=== PATIENT | male | born 1955 | race Caucasian/White ===

== ENCOUNTER 2018-05-29 14:48 | Observation (INO) | payer MEDICARE ==
[~2018-05-29] VITALS: Ht 182.9 cm; Wt 113.2 kg
[2018-05-29] MEDS ORDERED: PRAZOSIN HCL2 MG PO (15:14)
[2018-05-29] MEDS ORDERED: CARVEDILOL25 MG PO (15:14)
[2018-05-29] MEDS ORDERED: TRAZODONE HCL100 MG PO (15:15)
[2018-05-29] MEDS ORDERED: WELLBUTRIN SR150 MG PO (15:16)
[2018-05-29] MEDS ORDERED: AMLODIPINE BESY10 MG PO (15:16)
[2018-05-29] MEDS ORDERED: LISINOPRIL40 MG PO (15:17)
[2018-05-29] MEDS ORDERED: LYRICA300 MG PO (15:17)
[2018-05-29] MEDS ORDERED: NORCO 5-325 TA1 EACH PO (15:18)
[2018-05-29] MEDS ORDERED: LORAZEPAM1 MG PO (15:19)
--- NOTE | 2018-06-03 11:29 | EKG ---
[facility] [address] [facility] [place], [place] [address] Signed Normal sinus rhythm Left axis deviation Possible Anterior infarct , age undetermined Abnormal ECG No previous ECGs available Confirmed by JARETT LEOS DO ([id number]) on 06/03/2018 11:28:50 AM Electronically Signed By: JARETT LEOS DO 06/03/18 1129 PATIENT NAME: NORMAN HUERTAS Electrocardiogram DATE OF : 55 PHYSICIAN: JARETT LEOS DO REPORT #: [id number] REPORT IS CONFIDENTIAL AND NOT TO BE RELEASED WITHOUT AUTHORIZATION
== END 2018-05-30 14:45 | disposition home or self-care (01) ==
LOC: ED 14:48 → MS 14:50
PROVIDERS: ADMIT Internal Medicine
DX: J96.21 Acute and chronic respiratory failure with hypoxia (principal); G93.41 Metabolic encephalopathy; I10 Essential (primary) hypertension; G89.29 Other chronic pain; M54.9 Dorsalgia, unspecified; J43.9 Emphysema, unspecified; F17.210 Nicotine dependence, cigarettes, uncomplicated; I67.1 Cerebral aneurysm, nonruptured; F43.20 Adjustment disorder, unspecified; R40.2142 Coma scale, eyes open, spontaneous, at arrival to emergency department; R40.2362 Coma scale, best motor response, obeys commands, at arrival to emergency department; R40.2242 Coma scale, best verbal response, confused conversation, at arrival to emergency department; R29.702 NIHSS score 2; Z79.899 Other long term (current) drug therapy; Z79.891 Long term (current) use of opiate analgesic; Z72.820 Sleep deprivation
CPT/HCPCS: 36415; 36600; 70450; 70496; 70498; 71045; 71260; 80048; 80053; 81001; 82803; 84484; 85025; 85379; 93005; 93010; 94640; 94660; 94762; 99285-25; G0378; G0480; J7030; Q9967

== ENCOUNTER 2020-07-23 20:19 | Inpatient (IN) | payer MEDICARE ==
[~2020-07-23] VITALS: Ht 182.9 cm; Wt 117.9 kg
[~2020-07-23 20:19] MED LIST: AMLODIPINE BESY10 MG PO; CARVEDILOL25 MG PO; HYDROCODON-ACE1 EAC8 PO; LISINOPRIL40 MG PO; LORAZEPAM1 MG PO; LYRICA300 MG PO; PRAZOSIN HCL2 MG PO; TRAZODONE HCL100 MG PO; WELLBUTRIN SR150 MG PO
--- NOTE | 2020-07-24 02:10 | NUR ---
IN ROOM TO ADMINISTER MEDICATIONS. ASSISTED PT TO USE THE URINAL AT BEDSIDE. HE HAD SOB WITH STANDING BUT STATES HE FEELS MUCH BETTER THAN HE DID WHEN HE ARRIVED. ADMINISTERED NORCO FOR CHRONIC PAIN 11/09. PT LUNGS SOUND WHEEZY AT THIS TIME, HE IS ON 4LNC AND SITTING UP HIGH IN BED. PT DENIES FURTHER NEEDS AT THIS TIME. CALL LIGHT IS CLOSE.
--- NOTE | 2020-07-24 04:12 | NUR ---
PT IS RESTING WITH EYES CLOSED, RR IS EVEN AND NONLABORED. CALL LIGHT IS CLOSE.
--- NOTE | 2020-07-24 05:06 | NUR ---
ASSISTED PT TO USE URINAL, ADMINISTERED SOLUMEDROL. PT WOULD LIKE NEB TRT AT THIS TIME. CALLED RT. CALL LIGHT IS CLOSE.
--- NOTE | 2020-07-24 08:15 | NUR ---
IN TO ASSESS PT AND GIVE MORNING MEDICATIONS. PT SITTING UP ON SIDE OF BED EATING BREAKFAST. REPORT 7/10 PAIN PAIN THAT IS CHRONIC AND PT REPORTS PAIN IS RARELY BETTER THAN 6/10 BASELINE. DENIES NEED FOR PAIN MEDICATION THOUGH HE CAN HAVE NORCO 10 MG Q4HP. BP ELEVATED 188/94, PT HAS SEVERAL BP MEDICATIONS, ALL GIVEN NOW, WILL REASSESS IN 1 HOUR. LUNG SOUNDS ARE SCATTERED WHEEZES THROUGHOUT, PT ON 4 L O2 VIA NC SATING 93%. CALL IN REACH. NO OTHER NEEDS AT THIS TIME.
--- NOTE | 2020-07-24 08:16 | NUR ---
PATIENT AWAKE IN ROOM EATING. CALL LIGHT WITHIN REACH NO FUTHER NEEDS AT THIS TIME
--- NOTE | 2020-07-24 09:00 | NUR ---
IN TO RE CHECK PT BP, 154/87, HAS IMPROVED SINCE SCHEDULED BP MEDICATIONS. PT BACK IN BED RESTING. DENIES SOB, RECEIVED BREATHING TX FROM RT. RESTING IN BED D/T LACK OF SLEEP LAST NIGHT. CALL LIGHT IN REACH.
--- NOTE | 2020-07-24 09:48 | NUR ---
ASSISTED PATIENT TO RESTROOM AND BACK TO BED. I&O'S AND VITAL SIGNS DOCUMENTED. CALL LIGHT WITHIN REACH NO FUTHER NEEDS AT THIS TIME.
--- NOTE | 2020-07-24 11:00 | NUR ---
PO VIBRAMYCIN GIVEN. PT SATING 93% ON 2 L NC. REPORTS PAIN IS MANAGEABLE AT THIS TIME. HAS BEEN UP WALKING TO BATHROOM TO VOID, TOLERATED WELL, DENIES SOB W/ EXERTION. BACK TO BED. CALL LIGHT IN REACH.
--- NOTE | 2020-07-24 11:50 | NUR ---
COPD GOLD GUIDELINES : ADMISSION TO THE HOSPITAL FOR COPD EXACERBATION AND [facility] OF 4 IT WAS ASKED OF CLINICAL PHARMACY TO RECOMMEND A LAMA AND A DWAYNE FOR HOME RX. PT CURRENTLY HAS NO HOME RESPIRATORY MEDICATIONS. PT GIVEN COPD EDUCATION PACKET PROVIDED BY [facility] AND [employer] [facility]. PT INSTRUCTED WITH TEACH BACK METHOD. MOTIVATIONAL INTERVIEW CONDUCTED FOR SMOKING CESSSATION [place]. PT IS IN THE ACTION PHASE AND HAS DECIDED TO CONTINUE HIS QUIT ATTEMPT AFTER DISCHARGE. PT INSTRUCTED ON THE USE OF DMI WITH SPACER USING TEACH BACK AND DEMO BACK METHOD.
--- NOTE | 2020-07-24 13:14 | NUR ---
PATIENT SHOWER AND LINEN CHANGED. VITAL SIGNS AND I&O'S DOCUMENTED. CALL LIGHT WITHIN REACH NO FUTHER NEEDS AT THIS TIME.
--- NOTE | 2020-07-24 14:30 | NUR ---
IN TO GIVE IV SOLU-MEDROL. PT SITTING UP IN CHAIR. 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 WEANED TO 1 L O2 VIA NC, SATING 91-93%. 1+ EDEMA IMPROVED FROM ELEVATION OF BLE. ECHO RESULTS PENDING. PT DENIES SOB W/ EXERTION. LUNG SOUNDS WHEEZY AND DIM THROUGHOUT, RECEIVING Q4H NEB TX. BOWEL TONES ACTIVE. PT DENIES NAUSEA. CONTINUES TO RATE LOWER BACK PAIN 7/10, DENIES NEED FOR MORE PAIN MEDICATION AT THIS TIME. ASSESSMENT COMPLETE. CALL LIGHT IN REACH.
--- NOTE | 2020-07-24 16:50 | NUR ---
Spoke maria m Singh. He lives in [place] in a mobile home with few steps. Has a cane and a nebulizer, he rarely uses his cane. States this is a wake up call as he was not aware of his copd. States his from COPD. He plans on stopping smoking now. He lives alone, but has a neighbor who checks on him daily. Plans on dc to home, may need o2. States he is low income and on a fixed income. May need financial assistance with his bill.
--- NOTE | 2020-07-24 17:30 | NUR ---
IN TO GIVE PT 1.5 TABS OF CARVEDILOL. PT 164/98. PT CONTINUES TO SIT UP IN CHAIR EATING DINNER. CALL LIGHT IN REACH. PAIN HAS DECREASED TO 6/10.
--- NOTE | 2020-07-24 18:58 | NUR ---
PT REQUESTING PAIN MEDICATION FOR 8/10 LOWER BACK PAIN. 10 MG NORCO GIVEN. PT SITTING UP IN CHAIR, WEANED FROM 1 L NC TO ROOM AIR AND PT DESATED TO 88% WITHIN APPROX 2 MIN. PT PUT BACK ON 1 L NC AND SATING 91-92%. KENNEDY DORSEY FROM CASE MANAGEMENT IN TO TALK TO PT. NO OTHER NEEDS AT THIS TIME.
--- NOTE | 2020-07-24 19:10 | NUR ---
SHIFT REPORT RECEIVED FROM DAYSHIFT SUNITA KEN AT BEDSIDE. pt AWAKE AND RETURNING FROM BATHROOM AND IS IN BED, SBA WITH DELI CUTTER SLICER IN ROOM. BOARD UPDATED, CALL LIGHT IN REACH. pt IN GOOD SPIRITS AND DENIES NEEDS.
--- NOTE | 2020-07-24 19:27 | NUR ---
in to asst pt with blankets, no further needs at this time
--- NOTE | 2020-07-24 20:43 | NUR ---
IN ROOM TO GIVE PRN PAIN MEDICATION, SEE EMAR FOR INCREASING 8/10 GENERALIZED PAIN. NO FURTHER NEEDS, [employer] MAKER ALYSSA IN ROOM TO COLLECT VS AND I&O'S. CALL LIGHT IN REACH.
--- NOTE | 2020-07-24 20:50 | NUR ---
IN TO GET VITALS, PT DENIES NEED TO VOID AT THIS TIME, LISTENED TO PTs STORY, NO FURTHER NEEDS AT THIS TIEM
--- NOTE | 2020-07-24 22:20 | NUR ---
pt up to void, pt requested to sit up in chair, no further needs
--- NOTE | 2020-07-24 22:50 | NUR ---
NATIONAL RECRUITER GUERITA IN ROOM TO GIVE REMAINING EVENING MEDS, pt AWAKE AND RESTING IN CHAIR. REPORTS PAIN IMPROVED, DOES NOT RATE BUT DESCRIBES TOLERABLE. A/OX4, VSS. 1LNC IN PLACE, SCATTERED WHEEZES NOTED. NO DISTRESS NOTED, pt APPEARS COMFORTABLE AND IS INTERACTIVE WITH HEARING AID MECHANIC. NO FURTHER NEEDS, CALL LIGHT IN REACH.
--- NOTE | 2020-07-24 22:55 | NUR ---
PT UP IN CHAIR, O2 AT 1L. HS MEDICATIONS PER MAR. STATES HE FEELS BETTER COMPARED TO ADMISSION DATE.
--- NOTE | 2020-07-25 00:53 | NUR ---
ASSISTED PT TO RESTROOM AND BACK TO BED. PT DENIES FURTHER NEEDS AT THIS TIME. CALL LIGHT IS CLOSE.
--- NOTE | 2020-07-25 02:00 | NUR ---
pt RESTING IN BED WITH EYES CLOSED, RR EVEN AND UNLABORED. NO DISTRESS NOTED, 1LNC IN PLACE. CALL LIGHT IN REACH.
--- NOTE | 2020-07-25 03:18 | NUR ---
pt RESTING IN BED WITH EYES CLOSED, RR EVEN AND UNLABORED. NO DISTRESS NOTED. CALL LIGHT IN REACH. 1LNC IN REACH.
--- NOTE | 2020-07-25 05:55 | NUR ---
VS AND I&O'S STABLE, 1LNC IN PLACE. SCHEDULED STERIOD GIVEN, IV SITE WNL AND FLUSHES EASILY. ASSESSMENT COMPLETE, SCATTERED WHEEZES REMAIN, NO DISTRESS NOTED. RR EVENA ND UNLABORED, 19BPM. FRESH WATER AND JUICE PROVIDED. PRN PAIN MEDICAITON GIVEN FOR 6/10 PAIN, SEE EMAR. pt UP SBA TO VOID AND BACK TO BED, TIOLET HAT IN PLACE TO MEASURE URINE OUTPUT. pt BACK IN BED, NO FURTHER NEEDS. CALL LIGHT IN REACH.
--- NOTE | 2020-07-25 08:30 | NUR ---
REPORT RECEIVED FROM NIGHT RN AND PT. CARE RESUMED. PT. IS ALERT AND ORIENTED. HE DENIES PAIN. SKIN IS RED AND WARM. LUNGS HAVE SCATTERED WHEEZES AND DIM. IN THE BASES. O2 WAS TITRATED OFF BY R.T. EARLIER. O2 SAT. WAS 88% AND THIS NURSE TITRATED O2 BACK TO 1L AND O2 SAT. INCREASED TO 90%. PT. REPORTS GETTING BAD HEADACHE YESTERDAY AND STATED HE NORMALLY DRINKS 1-2 POTS OF COFFEE PER DAY AND HAS NOT HAD ANY YESTERDAY. IV SITE WNL AND FLUSHES WELL. PT. LEFT RESTING IN BED WITH CALL LIGHT IN REACH.
--- NOTE | 2020-07-25 12:46 | NUR ---
PT. REPORTS 8/10 PAIN IN BACK AND LEGS THAT IS CHRONIC. ADMIN. PRN NORCO. PT. ON 1L NC AND O2. SAT IS 91%. SCATTERED WHEEZES THROUGHOUT LUNGS. PT. IS AMBULATING TO THE BATHROOM WITH SBA. +1 EDEMA BLE THAT PT. STATES IS NORMAL FOR HIM. IV SITE WNL AND SL. PT. LEFT RESTING IN BED WITH CALL LIGHT IN REACH.
--- NOTE | 2020-07-25 13:00 | NUR ---
Pt spoke with Dr. Olson. Remains on . Plan for dc tomorrow. May or maynot need oxygen.
--- NOTE | 2020-07-25 13:14 | NUR ---
Medications reconciled using clinic and pharmacy notes
--- NOTE | 2020-07-25 13:48 | EKG ---
[facility] [address] [facility] [place] [address] Signed Normal sinus rhythm Left anterior fascicular block Cannot rule out Anteroseptal infarct (cited on or before 29-MAY-2018) ST \T\ T wave abnormality, consider inferolateral ischemia Prolonged QT Abnormal ECG When compared with ECG of 29-MAY-2018 14:55, Significant changes have occurred Confirmed by JENNA MEANS MD ([id number]) on 07/25/2020 1:47:52 PM Electronically Signed By: JENNA MEANS MD 07/25/20 1348 PATIENT NAME: NORMAN HUERTAS Electrocardiogram DATE OF : 55 PHYSICIAN: JENNA MEANS MD REPORT #: [id number] REPORT IS CONFIDENTIAL AND NOT TO BE RELEASED WITHOUT AUTHORIZATION
--- NOTE | 2020-07-25 14:45 | NUR ---
PATIENT AMBULATED AROUND THE UNIT ONCE WITH THE GENERAL ROAD PRODUCTION MANAGER. O2 SAT DROPPED TO 85% AND PT. BECAME SOB AND TREMULOUS. ASSSISTED BACK TO BED.
--- NOTE | 2020-07-25 14:53 | NUR ---
PT. PLACED ON PORTABLE O2 TANK AT 2L NC TO AMBULATE IN THE UNIT.
--- NOTE | 2020-07-25 16:34 | NUR ---
PT. ON 1L NC AND O2 SAT. IS 92%. PT. REPORTS NUMBNESS AND TINGLING IN HIS FEET AND HANDS THAT IS INTERMITTENT AND HE ATTRIBUTES TO PREVIOUS ACCIDENTS. SCATTERED WHEEZES IN LUNGS. SOB WITH EXERT. LEGS ELEVATED AND +1EDEMA BLE STILL PRESENT. EDUCATED PT. ON COPD. CONTINUE TO REINFORCE. PT. EXPRESSED INTEREST IN SMOKING CESSATION ONCE HE IS DISCHARGED. LEFT RESTING IN BED WITH CALL LIGHT IN REACH.
--- NOTE | 2020-07-25 17:46 | NUR ---
PT. HERE FOR COPD EXACERBATION. NEW DIAGNOSIS AND SOME EDUCATION DONE. CONTINUE COPD EDUCATION AND REINFORCEMENT. PT. EXPRESSES DESIRE TO QUIT SMOKING. ON 1L NC THROUGHOUT THE DAY AND O2 SAT 90-92%. TRIALED ON AND 02 SAT. WAS 88%. ALSO DESATS. WITH EXERTION. AMBULATED ONE LAP AROUND UNIT AND O2 SAT WAS 85%. NPO UNTIL AFTER HIS ULTRASOUND THIS EVENING. BP ELEVATED THROUGHOUT THE DAY. +1 EDEMA PRESENT IN BLE AND LEGS ELEVATED. 20G IV IN RIGHT FOREARM WNL AND FLUSHES WELL. PT. ALERT ORIENTED, AND COMPLIANT.
--- NOTE | 2020-07-25 20:05 | NUR ---
US TECH IS DONE AND STATES PT WOULD LIKE HIS DINNER NOW. BROUGHT TRAY AND WATER TO ROOM. PT DENIES FURTHER NEEDS AT THIS TIME. CALL LIGHT IS CLOSE.
--- NOTE | 2020-07-25 20:48 | NUR ---
PT CALLED, HE IS DONE WITH DINNER TRAY. HE DENIES FURTHER NEEDS AT THIS TIME. CALL LIGHT IS CLOSE.
--- NOTE | 2020-07-25 22:35 | NUR ---
IN TO GET VITALS, I&Os DONE, PT PROVIDED WITH A CELLPHONE TRIM DIE MAKER
--- NOTE | 2020-07-26 00:15 | NUR ---
pt up to void, sba to bathroom with urinal, no further needs at this time
--- NOTE | 2020-07-26 02:12 | NUR ---
up to chair, o2 1lnc, flushed red facial skin color, denies sob. legs elevated.
--- NOTE | 2020-07-26 04:59 | NUR ---
pt awake, O2 1L NC, sob with exertion noted, audible wheezing, but not on lungs. medicated with 1 norco 8/10 pain generalized. pleasant and coop. uses urinal, voiding dark yellow urine, legs elevated
--- NOTE | 2020-07-26 05:04 | NUR ---
has slept off and on poorly this shift. O2 1l NC, sob with exertion noted, lungs dim at bases and t/o. SBA/independent when up to br, voiding using urinal dark yellow urine. QS. tolerating diet well. Had abd US earlier this shift, see notes. SL patent. decreaed edema LE, elevated. Pt has spent time in chair and bed. Medicated x2 with norco 1 tab, generalized legs pain. uses acapella
--- NOTE | 2020-07-26 08:30 | NUR ---
REPORT RECEIVED FROM NIGHT RN AND PT. CARE RESUMED. PT. PT. ALERT AND ORIENTED. PT. STATED IT WAS HARDER TO BREATH WHEN ASKED TO SIT FORWARD. WHEEZES THROUGHOUT LUNGS. PT'S FACE IS REDDENED. REPORTS NUMBNESS IN EXTREMITIES THAT HE STATES IS NORMAL FOR HIM. ON 1L 02 NC AND O2 SAT. IS 91%. IV SITE WNL AND FLUSHES WELL. PT. LEFT RESTING IN BED WITH CALL LIGHT IN REACH.
--- NOTE | 2020-07-26 10:15 | NUR ---
SPOKE WITH PATIENT AT LENGTH REGARDING POSSIBLE OXYGEN NEED FOR HOME. PATIENT IS A [facility]. HE IS NOT SURE HE WANTS TO RUN HIS MEDS AND O2 [facility]OUGH THE [facility] IT TAKES TOO LONG TO GET. HE WANTS TO QUIT SMOKING. HE HAS HAD TEACHING THROUGH RT FOR THIS AND FEELS HE CAN TRY. HE HAS PATCHES/LOZENGES AT HOME. HE WOULD LIKE TO EVENTUALLY GET A "REGULAR DOCTOR" HE FEELS THE [facility] DOCTOR DOES NOT LISTEN TO HIM. HE HAS A CPAP AT HOME, BUT HE FEELS HE MIGHT NEED A NEW ONE SOON. HE HAS SPOKEN WITH DR MEANS AND IS GOING TO TRY AND GET INTO TO SEE HIM EVENTUALLY. HE SPOKE ABOUT LOOSING HIS AND MOTHER TO COPD AND HE REALLY WANTS TO MAKE SOME CHANGES. HE HAS MANY FRIENDS IN THE [place] AND FEELS HE HAS SUPPORT. I DISCUSSED THAT RT WILL BE DOING A HOME QUALIFIER TO SEE IF HE NEEDS TO OXYGEN. QUESTIONS ANSWERED.
[2020-07-26] MEDS ORDERED: DOXYCYCLINE HY100 MG PO (10:57)
[2020-07-26] MEDS ORDERED: NICOTINE PATCH1 EACH TD (11:00)
[2020-07-26] MEDS ORDERED: CARVEDILOL25 MG PO (11:00)
[2020-07-26] MEDS ORDERED: LISINOPRIL40 MG PO (11:01)
[2020-07-26] MEDS ORDERED: HYDROCHLOROTH12.5 MG PO (11:01)
[2020-07-26] MEDS ORDERED: PREDNISONE20 MG PO (11:03)
[2020-07-26] MEDS ORDERED: ADVAIR 250-501 EACH INH (11:04)
[2020-07-26] MEDS ORDERED: VENTOLIN HFA18 GM INH (11:05)
[2020-07-26] MEDS ORDERED: IPRAT-ALBUT 0.5-3 ML INH (11:06)
[2020-07-26] MEDS ORDERED: AERONEB GO NEB1 EACH INH (11:09)
--- NOTE | 2020-07-26 11:27 | NUR ---
STOPPED BY TO SEE HOW PATIENT IS DOING AND HOW HIS APPETITE IS. HE SAID THE FOOD HERE IS SURPRISINGLY GOOD. HE HAS A GOOD APPETITE. NEVER HAS BEEN ONE TO USE A LOT OF SALT, BUT HE LOVES LOVES LOVES CAYENNE PEPPER, CHILI FLAKES, ETC. HE IS GETTING MY FINE WITHOUT ALL THE SPICE HERE. I DID EXPLAIN HE IS ON A 2 GRAM SODIUM DIET AND THAT IF HE ORDERS EXTRA OF ANYTHING THE KITCHEN STAFF MAY NOT BE ABLE TO SEND IT BECAUSE IT COULD BE OVER HIS SODIUM ALLOTTMENT. HE HAS GOOD UNDERSTANDING. TOLD ME ABOUT WHAT HE LIKES TO COOK AT HOME. STATES THIS ADMISSION TO THE HOSPITAL HAS BEEN A REAL EYE OWNER CONSULTING ENGINEER FOR HIM. NO NUTRITION INTERVENTION DONE AT THIS TIME. WILL CONTINUE TO MONITOR.
--- NOTE | 2020-07-26 11:45 | NUR ---
SPOKE WITH PATIENT REGARDING OXYGEN. HE HAS QUALIFIED. WE DISCUSSED OPTIONS. DISCUSSED ALSO DR MEANS HAS WRITTEN RX FOR NEBULIZER, TOO. HE STATES HE HAS ONE BUT IT IS PRETTY OLD, WAS HIS WIFES' BEFORE SHE PASSED. HE WANTS ALL SENT TO [facility]. HE STATES "IT JUST T[facility]ES T[facility] LONG [facility]OUGH [facility]". DISCUSSED THAT WITH HIS MEDICARE HE MIGHT HAVE COSTS, INCLUDING MEDICARE DOES NOT USUALLY PAY FOR FIRST MONTH OF 0XYGEN AFTER ACUTE HOSPITAL STAY AND IT RUNS UP TO OR AROUND $170. PATIENT STATES HE WOULD RATHER PAY THEN WAIT FOR THE [facility]. CALLED [facility] AND SPOKE WITH DELANO. FAXED CLINICALS, RX FOR NEB AND OXYGEN, RT QUALIFIER. FAX CONFIRMATION RECEIVED 1211PM.
[2020-07-26] MEDS ORDERED: SYMBICORT 16010.2 GM INH (12:34)
--- NOTE | 2020-07-26 13:51 | NUR ---
[facility] DOES NOT HAVE A ELECTRICAL APPRENTICE TO SET UP OXYGEN UNTIL LATER TONIGHT. THEY WANT TO KNOW IF PATIENT COULD COME THERE AND THEY WILL GIVE HIM HIS CONCENTRATOR AND SHOW HIM HOW TO TRAVEL SERVICES PROFESSIONAL. SPOKE WITH PATIENT. HE FEELS COMFORTABLE WITH THIS. 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 HE STATES HIS [id number] IS COMING TO [facility] HIM AND THEY WILL GO TO [facility]. HE HAS BEEN THERE BEFORE SO KNOWS WHERE TO GO. CALLED [facility] BACK REGARDING HIS DECISION. THEY WILL RUN A PORTABLE OXYGEN TANK UP FOR HIS TRANSFER HOME. UPDATED STAFF.
== END 2020-07-26 14:55 | disposition home or self-care (01) | DRG 190 ==
LOC: ED 20:19 → MS 07-24 00:25
PROVIDERS: ADMIT Internal Medicine; ATTEND Internal Medicine
DX: J44.1 Chronic obstructive pulmonary disease with (acute) exacerbation (principal); J96.21 Acute and chronic respiratory failure with hypoxia; F11.20 Opioid dependence, uncomplicated; I24.8 Other forms of acute ischemic heart disease; Z20.822 Contact with and (suspected) exposure to COVID-19; I10 Essential (primary) hypertension; F17.210 Nicotine dependence, cigarettes, uncomplicated; G47.33 Obstructive sleep apnea (adult) (pediatric); M54.5 Low back pain; G89.4 Chronic pain syndrome; K76.89 Other specified diseases of liver
CPT/HCPCS: 71045; 76705; 80053; 83735; 83880; 84484; 85025; 85379; 90662; 93005; 93010; 93306; 94640; 94664; 94667; 94668; 94760; 94761; 99406; C9803; J1650; J1940; J2920; J2930; J7512; U0003

== ENCOUNTER 2021-04-13 15:15 | Emergency (ER) | payer MEDICARE ==
[~2021-04-13] VITALS: Ht 182.9 cm; Wt 117.5 kg
[~2021-04-13 15:15] MED LIST changes: +ADVAIR 250-501 EACH INH; +AERONEB GO NEB1 EACH INH; +DOXYCYCLINE HY100 MG PO; +HYDROCHLOROTH12.5 MG PO; +IPRAT-ALBUT 0.5-3 ML INH; +NICOTINE PATCH1 EACH TD; +PREDNISONE20 MG PO; +SYMBICORT 16010.2 GM INH; +VENTOLIN HFA18 GM INH
== END 2021-04-13 18:29 | disposition home or self-care (01) ==
LOC: ED 15:15
DX: S52.502A Unspecified fracture of the lower end of left radius, initial encounter for closed fracture (principal); I10 Essential (primary) hypertension; J44.9 Chronic obstructive pulmonary disease, unspecified; W22.8XXA Striking against or struck by other objects, initial encounter; F17.200 Nicotine dependence, unspecified, uncomplicated; Z79.899 Other long term (current) drug therapy; Z79.52 Long term (current) use of systemic steroids
CPT/HCPCS: 29125; 73110; 73130; 99283-25; A9270